=== PATIENT | female | born 1935 | race Caucasian/White ===

== ENCOUNTER → 2016-07-25 | Outpatient (CLI) | payer OTHER, MEDICARE ==
[2016-07-25 13:26] LABS: ALT/SGPT 23 U/L (12-78); AST/SGOT 15 U/L (15-37); BLOOD UREA NITROGEN 17 mg/dl (7-18); BUN/CREATININE RATIO 21.8 (10-20); CALCIUM 9.3 mg/dl (8.5-10.1); CARBON DIOXIDE 33 mmol/L (21-32); CHLORIDE 100 mmol/L (98-107); CHOLESTEROL 212 mg/dl (0-200); CREATININE 0.76 mg/dl (0.60-1.20); GLUCOSE 93 mg/dl (70-99); POTASSIUM 3.2 mmol/L (3.5-5.1); SODIUM 140 mmol/L (136-145); TRIGLYCERIDES 110 mg/dl (0-150); VERY LOW DENSITY LIPOPROT CALC 22 mg/dl
[2016-07-25 13:29] LABS: CHOLESTEROL/HDL RATIO 3.6; HDL CHOLESTEROL 59 mg/dl; LDL CHOLESTEROL CALCULATED 131 mg/dl
== END | disposition home or self-care (01) ==
LOC: C.LABMFLN 08:05
PROVIDERS: ATTEND Family Medicine
DX: E78.00 Pure hypercholesterolemia, unspecified (principal); I10 Essential (primary) hypertension

== ENCOUNTER → 2016-08-16 | Outpatient (CLI) | payer OTHER, MEDICARE | END | disposition home or self-care (01) | LOC: C.LABMFLN 09:39 | PROVIDERS: ATTEND Family Medicine | DX: I10 Essential (primary) hypertension (principal) ==

== ENCOUNTER → 2017-02-14 | Outpatient (CLI) | payer OTHER, MEDICARE ==
[2017-02-14 18:22] LABS: ALT/SGPT 23 U/L (12-78); BLOOD UREA NITROGEN 18 mg/dl (7-18); BUN/CREATININE RATIO 21.8 (10-20); CALCIUM 9.4 mg/dl (8.5-10.1); CARBON DIOXIDE 32 mmol/L (21-32); CHLORIDE 101 mmol/L (98-107); CHOLESTEROL 232 mg/dl (0-200); GLUCOSE 94 mg/dl (70-99); POTASSIUM 3.5 mmol/L (3.5-5.1); SODIUM 140 mmol/L (136-145); TRIGLYCERIDES 118 mg/dl (0-150); VERY LOW DENSITY LIPOPROT CALC 24 mg/dl
[2017-02-14 18:26] LABS: ALB/GLOB RATIO 1.2 (0.9-2); ALKALINE PHOSPHATASE 78 U/L (45-117); AST/SGOT 18 U/L (15-37); CHOLESTEROL/HDL RATIO 3.4; HDL CHOLESTEROL 69 mg/dl; LDL CHOLESTEROL CALCULATED 139 mg/dl
== END | disposition home or self-care (01) ==
LOC: C.LABMFLN 11:00
PROVIDERS: ATTEND Family Medicine
DX: E78.00 Pure hypercholesterolemia, unspecified (principal); I10 Essential (primary) hypertension; M85.80 Other specified disorders of bone density and structure, unspecified site

== ENCOUNTER 2020-07-04 14:06 | Inpatient (IN) ==
--- NOTE | 2020-07-04 14:35 | XRay Report ---
SINGLE VIEW CHEST CLINICAL HISTORY: Sepsis. FINDINGS: An AP, portable, upright chest radiograph is obtained. No prior studies are available for c omparison at the time of dictation. The heart is enlarged noting atherosclerotic calcification of th e thoracic aorta. The pulmonary vasculature is noncongested. There is mild bibasilar scarring/atelect asis. No airspace consolidation or large pleural effusion is identified. No pneumothorax is seen. The skeletal structures are osteopenic. The bony thorax is grossly intact. Arthritic change is seen in t he shoulders and thoracic spine. IMPRESSION: Cardiomegaly with no active disease in the chest. ACT 112: Negative or not required by law. Electronically signed by: Dilip Pop M.D. 07/04/2020 2:34 PM
[2020-07-04] MEDS ORDERED: SODIUM CHLORIDE 0.9% 1000ML 1,000 ML IV ONE (15:25)
[2020-07-04 15:29] LABS: Basophils # (auto) 0.04 K/uL (0-0.2); Basophils % (auto) 0.4 %; Eosinophils # (auto) 0.19 K/uL (0-0.5); Eosinophils % (auto) 2.1 %; Hematocrit (blood only) 40.5 % (37-47); Hemoglobin 13.7 g/dL (12.0-16.0); Immature Granulocytes # (auto) 0.02 K/uL (0.00-0.02); Immature Granulocytes % (auto) 0.2 %; Lymphocytes # (auto) 1.93 K/uL (1.2-3.4); Mean Corpuscular Hemoglobin 30.8 pg (25-34); Mean Corpuscular Hgb Conc 33.8 g/dL (32-36); Mean Platelet Volume 10.1 fL (7.4-10.4); Monocytes # (auto) 0.73 K/uL (0.11-0.59); Neutrophils # (auto) 6.26 K/uL (1.4-6.5); Neutrophils % (auto) 68.3 %; Platelet Count 202 K/uL (130-400); RDW Coefficient of Variation 14.1 % (11.5-14.5); RDW Standard Deviation 45.3 fL (36.4-46.3); Red Blood Count 4.45 M/uL (4.2-5.4); White Blood Count 9.17 K/uL (4.8-10.8)
[2020-07-04 15:31] LABS: Appearance Urine Clear (Clear); Bacteria Urine Automated Negative (Negative); Blood Urine Negative (Negative); Color Urine Dark Yellow; Epithelial Cell Urine Auto >30 /lpf (0-5); Glucose Urine UA Negative (Negative); Ketones Urine Trace (Negative); Leukocyte Esterase Urine 2+ (Negative); Nitrite Urine Negative (Negative); Protein Urine Negative (Negative); RBC Urine Automated 0-4 /hpf (0-4); Specific Gravity Urine 1.019 (1.000-1.030); Urobilinogen Urine Positive (Negative); WBC Urine Automated >30 /hpf (0-5)
[2020-07-04 15:34] LABS: Bilirubin Urine 1+ (Negative)
[2020-07-04 15:39] LABS: INR 1.1 (0.9-1.1); Partial Thromboplastin Ratio 1.1; Partial Thromboplastin Time 28.6 Seconds (21.0-31.0); Prothrombin Time 11.4 Seconds (9.0-12.0)
[2020-07-04 15:47] LABS: Albumin Level 2.8 gm/dl (3.4-5.0); BUN Creatinine Ratio 17.4 (10-20); Calcium 9.3 mg/dl (8.5-10.1); Creatinine Clr Calc Pharmacy 29.1 ml/min; Est GFR (African American) 54.8; Est GFR (Non-African American) 47.3; Magnesium 1.3 mg/dl (1.8-2.4); Potassium 4.3 mmol/L (3.5-5.1)
[2020-07-04 15:52] LABS: Albumin Globulin Ratio 0.8 (0.9-2); Bilirubin,Total 0.7 mg/dl (0.2-1); Globulin 3.4 gm/dl (2.5-4.0); Total Protein 6.2 gm/dl (6.4-8.2); Troponin I 0.019 ng/ml (0-0.045)
--- NOTE | 2020-07-04 16:10 | CT Scan Report ---
CT SCAN OF THE BRAIN WITHOUT IV CONTRAST CLINICAL HISTORY: Change in mental status. COMPARISON STUDY: No priors. TECHNIQUE: Unenhanced axial CT scan of the brain is performed from the vertex to the skull base. A do se lowering technique was utilized adhering to the principles of ALARA. CT DOSE: 537.48 mGy.cm FINDINGS: Brain parenchyma: There are age-related involutional changes noting advanced confluent subcortical a nd periventricular microangiopathic change. There is no hemorrhage, mass effect, or evidence of acute territorial ischemia by CT criteria. Arguello-white matter differentiation is preserved. No extra-axial fluid collection is seen. Mineralization is noted in the basal ganglia. Ventricles, sulci, cisterns: Prominent secondary to involutional change. Intracranial vasculature: There is atherosclerotic calcification of the cavernous carotid arteries. Calvarium: Unremarkable. Sinuses and mastoids: The visualized paranasal sinuses are clear. The mastoid air cells are well pneu matized. Orbits: The bony orbits are grossly intact. There are bilateral ocular lens implants. IMPRESSION: There is no hemorrhage, mass effect, or evidence of acute territorial ischemia by CT cassandra suazo. ACT 112: Negative or not required by law. Electronically signed by: Dilip Pop M.D. 07/04/2020 4:09 PM
[2020-07-04] MEDS: MAGNESIUM SULFATE / D5W 1 GM/100 ML BAG IV SCH ×4 (16:27→23:27)
--- NOTE | 2020-07-04 16:51 | Emergency Department Note ---
History of Present Illness General Chief complaint: Illness Stated complaint: SICK/POSSIBLE UTI/DEHYDRATION Time Seen by Provider: 07/04/20 14:20 Source: family (Son at bedside) History of Present Illness Provider complaint: Altered mental status fatigue Associated symptoms: + weakness; no fever/chills 84-year-old female presents emergency department with her son for altered mental status and weakness. Patient has a history of lung cancer and was recently diagnosed with shingles. The patient has been having difficulty taking care of herself so the son moved her in with him 4 days ago. He states in the last 4 days her condition has worsened where she will not eat or drink and has been increasingly more confused. No falls. No fevers. No nausea or vomiting. The son reports that the patient's urine does have a foul smell to it. The son states they have been in touch with the patient's PCP Dr. Pereyra who instructed them to come to the emergency department. Home Medications Medication Instructions Recorded Confirmed Type calcium carbonate 500 mg (1,250 1 tab PO DAILY tab 02/18/19 07/04/20 History mg)-vitamin D3 200 unit tablet multivitamin 1 tab PO DAILY 02/18/19 07/04/20 History triamcinolone acetonide 0.1 % 1 appln TOP BID PRN #30 gm 12/02/19 07/04/20 Rx topical cream alendronate 70 mg tablet 70 mg PO WK #12 tab 01/21/20 07/04/20 Rx chlorthalidone 50 mg tablet 50 mg PO DAILY #90 tab 02/03/20 07/04/20 Rx metoprolol tartrate 25 mg tablet 25 mg PO BID #180 tab 02/03/20 07/04/20 Rx montelukast 10 mg tablet 10 mg PO DAILY #90 tab 02/03/20 07/04/20 Rx omeprazole 40 mg capsule,delayed 40 mg PO DAILY #90 cap 02/03/20 07/04/20 Rx release potassium chloride 10 mEq 20 meq PO DAILY #180 cap 02/03/20 07/04/20 Rx capsule,extended release simvastatin 20 mg tablet 20 mg PO QPM #90 tab 02/03/20 07/04/20 Rx front wheeled walker with tennis #1 ea 06/21/20 06/25/20 Rx balls in back donepezil 10 mg PO HS 07/04/20 07/04/20 History gabapentin 100 mg capsule 100 mg PO TID #90 cap 07/04/20 07/04/20 Rx nystatin 5 ml PO ACHS 07/04/20 07/04/20 History tramadol 50 - 100 mg PO Q6H PRN 07/04/20 07/04/20 History Allergies Allergy/AdvReac Type Severity Reaction Status Date / Time aspirin AdvReac Verified 07/04/20 15:43 Past Med/Surg History Medical History Abdominal pain Adenocarcinoma, lung Allergic rhinitis Asthma-chronic obstructive pulmonary disease overlap syndrome Benign essential hypertension Chronic GERD Dehydration Fatigue Hypercholesterolemia Hypokalemia Memory loss Mental status alteration Mild cognitive impairment Nausea Neurologic gait dysfunction Osteopenia Shingles Urticaria Vitamin D deficiency Surgical History History of tonsillectomy and adenoidectomy Family History Father Colorectal cancer Mother Heart disease Grandmother Breast cancer Social History Smoking Status: Former smoker Tobacco Type: Cigarettes Age Started Using Tobacco: 15; Age Quit Using Tobacco: 39; Number of Years Since Quit: 44; Second Hand Exposure: No; Hx Alcohol Use: No Hx Substance Use: No Preferred Language: Afghan Visual Impairment: No Limitations Hearing Ability: Normal marital status: Current Living Situation: Spouse current occupational status: retired Feels Safe at Home: Yes Childhood Exposure to Second-Hand Smoke: No caffeine: Yes Dental Care, Regularly: No Physical Activity Frequency: 3-4 Times per Week Physical Activity Frequency Comment: daily housework Seatbelt Use: always Sunscreen Use: No Do you think of yourself as: straight/heterosexual Review of Systems Unobtainable due to cognitive status Physical Exam Vital Signs Vital Signs - 24 hr 07/04/20 14:10 07/04/20 15:13 07/04/20 15:20 Temperature 36.8 C Temperature Source Temporal Artery Scan Pulse Rate 54 L 53 L 54 L Pulse Rate [Left Finger] 54 L Pulse Rate from SpO2 Sensor 52 L 54 L Respiratory Rate 16 18 22 Respiratory Effort / Characteristics Non-Labored Spontaneous Respiratory Depth Normal Respiratory Pattern Regular Blood Pressure 121/76 131/67 Blood Pressure [Left Arm] 131/67 Blood Pressure Mean 91 88 Blood Pressure Mean [Left Arm] 88 Blood Pressure Position Sitting Pulse Oximetry 95 96 96 Oxygen Delivery Method Room Air Room Air Room Air Sepsis Recent Fever Within 48 Hours No Sepsis New/Unexplained Change in Mental Status N/A Sepsis Action Taken by Nursing No Action Required 07/04/20 15:30 07/04/20 15:31 07/04/20 15:40 Temperature Temperature Source Pulse Rate 53 L 51 L 54 L Pulse Rate [Left Finger] Pulse Rate from SpO2 Sensor 54 L 52 L 54 L Respiratory Rate 20 19 18 Respiratory Effort / Characteristics Respiratory Depth Respiratory Pattern Blood Pressure 139/64 Blood Pressure [Left Arm] Blood Pressure Mean 89 Blood Pressure Mean [Left Arm] Blood Pressure Position Pulse Oximetry 97 97 97 Oxygen Delivery Method Room Air Room Air Sepsis Recent Fever Within 48 Hours Sepsis New/Unexplained Change in Mental Status Sepsis Action Taken by Nursing 07/04/20 15:50 07/04/20 16:04 07/04/20 16:06 Temperature Temperature Source Pulse Rate 61 64 61 Pulse Rate [Left Finger] 62 Pulse Rate from SpO2 Sensor 58 L 65 61 Respiratory Rate 15 20 Respiratory Effort / Characteristics Non-Labored Respiratory Depth Normal Respiratory Pattern Blood Pressure 153/69 H Blood Pressure [Left Arm] 153/69 H Blood Pressure Mean 97 Blood Pressure Mean [Left Arm] 97 Blood Pressure Position Pulse Oximetry 96 95 96 Oxygen Delivery Method Room Air Room Air Room Air Sepsis Recent Fever Within 48 Hours Sepsis New/Unexplained Change in Mental Status Sepsis Action Taken by Nursing 07/04/20 16:07 07/04/20 16:10 07/04/20 16:20 Temperature Temperature Source Pulse Rate 59 L 58 L Pulse Rate [Left Finger] Pulse Rate from SpO2 Sensor 59 L 58 L Respiratory Rate 23 23 Respiratory Effort / Characteristics Non-Labored Respiratory Depth Respiratory Pattern Blood Pressure Blood Pressure [Left Arm] Blood Pressure Mean Blood Pressure Mean [Left Arm] Blood Pressure Position Pulse Oximetry 95 95 Oxygen Delivery Method Room Air Room Air Sepsis Recent Fever Within 48 Hours Sepsis New/Unexplained Change in Mental Status Sepsis Action Taken by Nursing 07/04/20 16:30 07/04/20 16:31 07/04/20 16:40 Temperature Temperature Source Pulse Rate 58 L 60 61 Pulse Rate [Left Finger] Pulse Rate from SpO2 Sensor 58 L 59 L 60 Respiratory Rate 20 20 16 Respiratory Effort / Characteristics Respiratory Depth Respiratory Pattern Blood Pressure 154/55 H Blood Pressure [Left Arm] Blood Pressure Mean 88 Blood Pressure Mean [Left Arm] Blood Pressure Position Pulse Oximetry 96 96 96 Oxygen Delivery Method Room Air Room Air Sepsis Recent Fever Within 48 Hours Sepsis New/Unexplained Change in Mental Status Sepsis Action Taken by Nursing 07/04/20 16:50 07/04/20 17:00 07/04/20 17:01 Temperature Temperature Source Pulse Rate 63 59 L 57 L Pulse Rate [Left Finger] Pulse Rate from SpO2 Sensor 63 56 L 57 L Respiratory Rate 17 20 20 Respiratory Effort / Characteristics Respiratory Depth Respiratory Pattern Blood Pressure 138/78 Blood Pressure [Left Arm] Blood Pressure Mean 98 Blood Pressure Mean [Left Arm] Blood Pressure Position Pulse Oximetry 94 95 95 Oxygen Delivery Method Sepsis Recent Fever Within 48 Hours Sepsis New/Unexplained Change in Mental Status Sepsis Action Taken by Nursing 07/04/20 17:10 07/04/20 17:20 Temperature Temperature Source Pulse Rate 58 L 56 L Pulse Rate [Left Finger] Pulse Rate from SpO2 Sensor 57 L 54 L Respiratory Rate 23 20 Respiratory Effort / Characteristics Respiratory Depth Respiratory Pattern Blood Pressure Blood Pressure [Left Arm] Blood Pressure Mean Blood Pressure Mean [Left Arm] Blood Pressure Position Pulse Oximetry 96 99 Oxygen Delivery Method Sepsis Recent Fever Within 48 Hours Sepsis New/Unexplained Change in Mental Status Sepsis Action Taken by Nursing Physical Exam HENT: Exam performed. -Head: Normocephalic and atraumatic. -Right Ear: External ear normal. No mastoid tenderness. -Left Ear: External ear normal. No mastoid tenderness. -Mouth/Throat: The oropharynx is clear and moist. No trismus in the jaw. No dental abscesses or uvula swelling. No oropharyngeal exudate or tonsillar abscesses. EYES: Conjunctivae and EOM are normal. Pupils are equal, round, and reactive to light. Right eye exhibits no discharge. Left eye exhibits no discharge. No scleral icterus. NECK: Normal range of motion. Neck supple. No JVD present. No spinous process tenderness present. No carotid bruit present. No rigidity. No tracheal deviation and normal range of motion present. No Brudzinski's sign and no Kernig's sign noted. CV: Normal rate, regular rhythm, normal heart sounds and intact distal pulses. There is no peripheral edema. Palpable radial pulses bue. PULM/CHEST: Effort normal and breath sounds normal. No respiratory distress. No stridor. She has no wheezes. She has no rales. -Chest Wall: She exhibits no tenderness. ABD: The abdomen is soft. Bowel sounds are normal. She has no distension. No mass is present. There is no tenderness. There is no rebound, no guarding, no Reddy's sign and no tenderness at McBurney's point. Rovsig negative MUSC/SKEL: Normal range of motion. There is no peripheral edema, tenderness or deformity. LYMPH: No cervical adenopathy. NEURO: She is alert and oriented to place. She is not oriented to time or person. She has normal strength. No cranial nerve deficit or sensory deficit. Coordination and gait normal. GCS eye subscore is 4. GCS verbal subscore is 5. GCS motor subscore is 6. Cerebellar tests wnl. SKIN: Vesicular lesions over the left anterior abdomen. PSYCH: She has a normal mood and affect. Behavior is normal. Judgment and though t content normal. Course Course 1420: The patient was evaluated in room C9. A complete history and physical exam was performed Cardiac monitoring: An order was placed for continuous cardiac monitoring. The monitor shows a rate of 50 with sinus rhythm 1620: Vital signs stable. Labs within normal limits with exception of magnesium 1.3. Magnesium replacement was started in the emergency department. Imaging within normal limits. [facility]. Administered Medications Discontinued Medications Sodium Chloride (Nss 1000ml) 1,000 mls @ 999 mls/hr IV .Q1H1M ONE Stop: 07/04/20 16:25 Last Infusion: 07/04/20 16:07 Dose: 0 mls/hr Documented by: [id number] Admin: 07/04/20 15:27 Dose: 999 mls/hr Documented by: [id number] Magnesium Sulfate/Dextrose (Magnesium Sulfate / D5w) 1 gm in 100 mls @ 100 mls/hr IV Q1H DIGNA Stop: 07/04/20 18:20 Last Infusion: 07/04/20 18:40 Dose: 0 mls/hr Documented by: [id number] Admin: 07/04/20 17:27 Dose: 100 mls/hr Documented by: [id number] Infusion: 03/14/21 17:27 Dose: 0 mls/hr Documented by: [id number] Admin: 07/04/20 16:27 Dose: 100 mls/hr Documented by: [id number] Medical Decision Making Laboratory Data Result diagrams: 07/04/20 15:13 07/04/20 15:13 Lab Results 07/04/20 07/04/20 07/04/20 Range/Units 15:13 15:13 15:13 WBC 9.17 (4.8-10.8) K/uL RBC 4.45 (4.2-5.4) M/uL Hgb 13.7 (12.0-16.0) g/dL Hct 40.5 (37-47) % MCV 91.0 (80-100) fL MCH 30.8 (25-34) pg MCHC 33.8 (32-36) g/dL RDW Std Deviation 45.3 (36.4-46.3) fL RDW Coeff of Alden 14.1 (11.5-14.5) % Plt Count 202 (130-400) K/uL MPV 10.1 (7.4-10.4) fL Immature Gran % (Auto) 0.2 % Neut % (Auto) 68.3 % Lymph % (Auto) 21.0 % Gove % (Auto) 8.0 % Eos % (Auto) 2.1 % Baso % (Auto) 0.4 % Neut # (Auto) 6.26 (1.4-6.5) K/uL Lymph # (Auto) 1.93 (1.2-3.4) K/uL Gove # (Auto) 0.73 H (0.11-0.59) K/uL Eos # (Auto) 0.19 (0-0.5) K/uL Baso # (Auto) 0.04 (0-0.2) K/uL Immature Gran # (Auto) 0.02 (0.00-0.02) K/uL PT (9.0-12.0) Seconds INR (0.9-1.1) APTT (21.0-31.0) Seconds PTT Ratio Sodium 139 (136-145) mmol/L Potassium 4.3 (3.5-5.1) mmol/L Chloride 105 (98-107) mmol/L Carbon Dioxide 27 (21-32) mmol/L Anion Gap 7.0 (3-11) BUN 19 H (7-18) mg/dl Creatinine 1.07 (0.6-1.2) mg/dl Est Cr Clr Drug Dosing 29.1 ml/min Est GFR ( Amer) 54.8 Est GFR (Non-Af Amer) 47.3 BUN/Creatinine Ratio 17.4 (10-20) Glucose 85 (70-99) mg/dl Lactate (0.4-2.0) mmol/L Calcium 9.3 (8.5-10.1) mg/dl Magnesium 1.3 L (1.8-2.4) mg/dl Total Bilirubin 0.7 (0.2-1) mg/dl AST 17 (15-37) U/L ALT 23 (12-78) U/L Alkaline Phosphatase 77 (45-117) U/L Troponin I 0.019 (0-0.045) ng/ml Total Protein 6.2 L (6.4-8.2) gm/dl Albumin 2.8 L (3.4-5.0) gm/dl Globulin 3.4 (2.5-4.0) gm/dl Albumin/Globulin Ratio 0.8 L (0.9-2) Procalcitonin < 0.05 (0-0.5) ng/ml Urine Color Urine Appearance (Clear) Urine pH (4.5-7.5) Ur Specific [place] (1.000-1.030) Urine Protein (Negative) Urine Glucose (UA) (Negative) Urine Ketones (Negative) Urine Blood (Negative) Urine Nitrite (Negative) Urine Bilirubin (Negative) Urine Urobilinogen (Negative) Ur Leukocyte Esterase (Negative) Urine WBC (Auto) (0-5) /hpf Urine RBC (Auto) (0-4) /hpf U Hyaline Cast (Auto) (0-5) /lpf U Epithel Cells (Auto) (0-5) /lpf Urine Bacteria (Auto) (Negative) COVID-19 Eval Order SARS-CoV-2, RNA, NAAT (NEGATIVE) 07/04/20 07/04/20 07/04/20 Range/Units 15:13 15:13 15:15 WBC (4.8-10.8) K/uL RBC (4.2-5.4) M/uL Hgb (12.0-16.0) g/dL Hct (37-47) % MCV (80-100) fL MCH (25-34) pg MCHC (32-36) g/dL RDW Std Deviation (36.4-46.3) fL RDW Coeff of Alden (11.5-14.5) % Plt Count (130-400) K/uL MPV (7.4-10.4) fL Immature Gran % (Auto) % Neut % (Auto) % Lymph % (Auto) % Gove % (Auto) % Eos % (Auto) % Baso % (Auto) % Neut # (Auto) (1.4-6.5) K/uL Lymph # (Auto) (1.2-3.4) K/uL Gove # (Auto) (0.11-0.59) K/uL Eos # (Auto) (0-0.5) K/uL Baso # (Auto) (0-0.2) K/uL Immature Gran # (Auto) (0.00-0.02) K/uL PT 11.4 (9.0-12.0) Seconds INR 1.1 (0.9-1.1) APTT 28.6 (21.0-31.0) Seconds PTT Ratio 1.1 Sodium (136-145) mmol/L Potassium (3.5-5.1) mmol/L Chloride (98-107) mmol/L Carbon Dioxide (21-32) mmol/L Anion Gap (3-11) BUN (7-18) mg/dl Creatinine (0.6-1.2) mg/dl Est Cr Clr Drug Dosing ml/min Est GFR ( Amer) Est GFR (Non-Af Amer) BUN/Creatinine Ratio (10-20) Glucose (70-99) mg/dl Lactate 1.1 (0.4-2.0) mmol/L Calcium (8.5-10.1) mg/dl Magnesium (1.8-2.4) mg/dl Total Bilirubin (0.2-1) mg/dl AST (15-37) U/L ALT (12-78) U/L Alkaline Phosphatase (45-117) U/L Troponin I (0-0.045) ng/ml Total Protein (6.4-8.2) gm/dl Albumin (3.4-5.0) gm/dl Globulin (2.5-4.0) gm/dl Albumin/Globulin Ratio (0.9-2) Procalcitonin (0-0.5) ng/ml Urine Color Dark Yellow Urine Appearance Clear (Clear) Urine pH 6.0 (4.5-7.5) Ur Specific [place] 1.019 (1.000-1.030) Urine Protein Negative (Negative) Urine Glucose (UA) Negative (Negative) Urine Ketones Trace H (Negative) Urine Blood Negative (Negative) Urine Nitrite Negative (Negative) Urine Bilirubin 1+ H (Negative) Urine Urobilinogen Positive H (Negative) Ur Leukocyte Esterase 2+ H (Negative) Urine WBC (Auto) >30 H (0-5) /hpf Urine RBC (Auto) 0-4 (0-4) /hpf U Hyaline Cast (Auto) 5-10 H (0-5) /lpf U Epithel Cells (Auto) >30 H (0-5) /lpf Urine Bacteria (Auto) Negative (Negative) COVID-19 Eval Order SARS-CoV-2, RNA, NAAT (NEGATIVE) 07/04/20 07/04/20 Range/Units 15:23 15:23 WBC (4.8-10.8) K/uL RBC (4.2-5.4) M/uL Hgb (12.0-16.0) g/dL Hct (37-47) % MCV (80-100) fL MCH (25-34) pg MCHC (32-36) g/dL RDW Std Deviation (36.4-46.3) fL RDW Coeff of Alden (11.5-14.5) % Plt Count (130-400) K/uL MPV (7.4-10.4) fL Immature Gran % (Auto) % Neut % (Auto) % Lymph % (Auto) % Gove % (Auto) % Eos % (Auto) % Baso % (Auto) % Neut # (Auto) (1.4-6.5) K/uL Lymph # (Auto) (1.2-3.4) K/uL Gove # (Auto) (0.11-0.59) K/uL Eos # (Auto) (0-0.5) K/uL Baso # (Auto) (0-0.2) K/uL Immature Gran # (Auto) (0.00-0.02) K/uL PT (9.0-12.0) Seconds INR (0.9-1.1) APTT (21.0-31.0) Seconds PTT Ratio Sodium (136-145) mmol/L Potassium (3.5-5.1) mmol/L Chloride (98-107) mmol/L Carbon Dioxide (21-32) mmol/L Anion Gap (3-11) BUN (7-18) mg/dl Creatinine (0.6-1.2) mg/dl Est Cr Clr Drug Dosing ml/min Est GFR ( Amer) Est GFR (Non-Af Amer) BUN/Creatinine Ratio (10-20) Glucose (70-99) mg/dl Lactate (0.4-2.0) mmol/L Calcium (8.5-10.1) mg/dl Magnesium (1.8-2.4) mg/dl Total Bilirubin (0.2-1) mg/dl AST (15-37) U/L ALT (12-78) U/L Alkaline Phosphatase (45-117) U/L Troponin I (0-0.045) ng/ml Total Protein (6.4-8.2) gm/dl Albumin (3.4-5.0) gm/dl Globulin (2.5-4.0) gm/dl Albumin/Globulin Ratio (0.9-2) Procalcitonin (0-0.5) ng/ml Urine Color Urine Appearance (Clear) Urine pH (4.5-7.5) Ur Specific [place] (1.000-1.030) Urine Protein (Negative) Urine Glucose (UA) (Negative) Urine Ketones (Negative) Urine Blood (Negative) Urine Nitrite (Negative) Urine Bilirubin (Negative) Urine Urobilinogen (Negative) Ur Leukocyte Esterase (Negative) Urine WBC (Auto) (0-5) /hpf Urine RBC (Auto) (0-4) /hpf U Hyaline Cast (Auto) (0-5) /lpf U Epithel Cells (Auto) (0-5) /lpf Urine Bacteria (Auto) (Negative) COVID[facility]19 [email or web address] SARS-[facility]-2, RNA, NAAT NEGATIVE (NEGATIVE) ECG Data Indication: + altered mental status Rate (beats per minute): 52 Rhythm: + normal sinus ECG Intervals/blocks: + Normal OH and + Normal QT-c ECG ST segments: + Normal ST segments Additional Comments: QRS 68 MDM Narrative 1420: The patient was evaluated in room C9. A complete history and physical exam was performed Cardiac monitoring: An order was placed for continuous cardiac monitoring. The monitor shows a rate of 50 with sinus rhythm 1620: Vital signs stable. Labs within normal limits with exception of magnesium 1.3. Magnesium replacement was started in the emergency department. Imaging within normal limits. [facility] been [facility]. Impression & Plan Hypomagnesemia Discharge Plan Visit Data Chief Complaint: Illness Stated Complaint: SICK/POSSIBLE UTI/DEHYDRATION ED Provider: Jamal Medeiros Discharge Problem: Hypomagnesemia Patient Disposition: Admitted As Inpatient Discharge Instructions Interventions: ED Discharge Assessment Last Done: 07/04/20 19:58
--- NOTE | 2020-07-04 18:19 | History & Physical Report ---
Date of Service July 04, 2020 Assessment & Plan (1) Fatigue: Patient feels more fatigued and sleeping more, and decrease oral intake--- she has been followed closely by her PCP. - labs support decrease intake- will replace mag .13--> 4 gram total - Murmur noted on physical exam, appears to be new. - obtain ECHO while in house as this may be associated with her new fatigue - Hold gabapentin, recently increased- may be effecting her fatigue and weakness and balance reported - Hold tramadol (2) Hypomagnesemia: Decreased oral intake likely cause - no gastric loss - replete with 4 gm mag, recheck in am (3) Shingles: crusted over - place on contact precautions - pain control if needed with Lidoderm patch - Tylenol -discontinuing home gabapentin and tramadol as above as likely cause of her inc reasing lethargy (4) Mild cognitive impairment: Has been following PCP for this and again may be related to polypharmacy and addition of new medications for her shingles - will hold and control pain with alternate agents - hydrate, follow nutritional intake - Patient had MRI in November 2019 with no evidence of metastic disease CT head here negative for acute - could consider re-image on this admission if not improving with holding sedating medications (5) Adenocarcinoma, lung: FNA with adeno and completed radiation therapy. - Hematology is Giesinger - Lungs clear to auscultation and no hypoxia (6) Hypercholesterolemia: continue statin (7) Hypertension: Eppisodes of dehydration and hypokalemia at visits to her PCP recently chlorthalidone has been held - can restart in monitored setting if needed - patient appears euvolemic on exam (8) Murmur: New as above. NOT able to find previous evidence of murumr - ECHO- Bp control (9) COPD (chronic obstructive pulmonary disease): Class B- smoker history- emphysema - On Triligy and she feels like her breathing is doing well - No acute needs (10) DVT prophylaxis: Lovenox SQ Dispo-admit to med/surg for replacement of magnesium, observation for improvement off sedating meds, and PT/OT evals to see if needs rehab placement History of Present Illness Primary Care Provider: Dilip Pereyra MD 84 YOF with past medical history of 30 year smoker, COPD, lung cancer, HLD, HTN, shingles (06/17), dementia, and weakness. The patient was brought in today by her son for progressive weakness, loss of appetite, and decrease oral fluid i ntake. The patient is normally the caregiver for her bed-ridden and independent at home. the patient was diagnosed with shingles along her left thoracic region and under left breast. She was given gabapentin, valcyclovir and tramadol. 05March the patient's gabapentin was increased to 100 mg 2 pills 3x per day and was to follow up with progress. The son reports that she has just been increasingly tired, sleeping more, and increased weakness and ability to transfer at home. He took his mom to live at his house at the beginning of this week to help her and assist her getting around. She was noted to by hypomagnesemic in the EMD, and will need to follow up for OT/PT and evaluation of her status, so will be observed in house. Patient with increasing fatigue, and confusion and memory involvement will need case management to evaluate and assist with home needs and care delivery. Consult placed. Allergies Allergy/AdvReac Type Severity Reaction Status Date / Time aspirin AdvReac Verified 07/04/20 15:43 Home Medications Medication Instructions Recorded Confirmed Type calcium carbonate 500 mg (1,250 1 tab PO DAILY tab 02/18/19 07/04/20 History mg)-vitamin D3 200 unit tablet multivitamin 1 tab PO DAILY 02/18/19 07/04/20 History triamcinolone acetonide 0.1 % 1 appln TOP BID PRN #30 gm 12/02/19 07/04/20 Rx topical cream alendronate 70 mg tablet 70 mg PO WK #12 tab 01/21/20 07/04/20 Rx chlorthalidone 50 mg tablet 50 mg PO DAILY #90 tab 02/03/20 07/04/20 Rx metoprolol tartrate 25 mg tablet 25 mg PO BID #180 tab 02/03/20 07/04/20 Rx montelukast 10 mg tablet 10 mg PO DAILY #90 tab 02/03/20 07/04/20 Rx omeprazole 40 mg capsule,delayed 40 mg PO DAILY #90 cap 02/03/20 07/04/20 Rx release potassium chloride 10 mEq 20 meq PO DAILY #180 cap 02/03/20 07/04/20 Rx capsule,extended release simvastatin 20 mg tablet 20 mg PO QPM #90 tab 02/03/20 07/04/20 Rx front wheeled walker with tennis #1 ea 06/21/20 06/25/20 Rx balls in back donepezil 10 mg PO HS 07/04/20 07/04/20 History gabapentin 100 mg capsule 100 mg PO TID #90 cap 07/04/20 07/04/20 Rx nystatin 5 ml PO ACHS 07/04/20 07/04/20 History tramadol 50 - 100 mg PO Q6H PRN 07/04/20 07/04/20 History Past Med/Surg History Medical History Abdominal pain Adenocarcinoma, lung Allergic rhinitis Asthma-chronic obstructive pulmonary disease overlap syndrome Benign essential hypertension Chronic GERD Dehydration Fatigue Hypercholesterolemia Hypokalemia Memory loss Mental status alteration Mild cognitive impairment Nausea Neurologic gait dysfunction Osteopenia Shingles Urticaria Vitamin D deficiency Surgical History History of tonsillectomy and adenoidectomy Family History Father Colorectal cancer Mother Heart disease Grandmother Breast cancer Social History Smoking Status: Former smoker Tobacco Type: Cigarettes Age Started Using Tobacco: 15; Age Quit Using Tobacco: 39; Number of Years Since Quit: 44; Second Hand Exposure: No; Hx Alcohol Use: No Hx Substance Use: No Preferred Language: Romansh Visual Impairment: No Limitations Hearing Ability: Normal marital status: Current Living Situation: Spouse current occupational status: retired Feels Safe at Home: Yes Childhood Exposure to Second-Hand Smoke: No caffeine: Yes Dental Care, Regularly: No Physical Activity Frequency: 3-4 Times per Week Physical Activity Frequency Comment: daily housework Seatbelt Use: always Sunscreen Use: No Do you think of yourself as: straight/heterosexual Review of Systems Review of Systems: REVIEW OF SYSTEMS: Constitutional: No fever, sweats or chills Eyes: No diplopia, no worsening or blurred vision ENT: normal hearing, no trouble swallowing Respiratory: No cough, sputum, dyspnea at rest or on exertion Cardiovascular: No chest pain, tightness or palpitations Abdomen: No pain, nausea, vomiting, diarrhea or constipation Musculoskeletal: No joint pain, calf pain, swelling Neurologic: (+) weakness, balance problems, (+) numbness/tingling, or balance problems Psychiatric: No anxiety or depression Skin: (+) herpectic rash on thoracic Physical Exam Physical Exam: PHYSICAL EXAM: General: awake, alert, no apparent distress Head: Normocephalic, atraumatic ENT: PERRL, EOMI, no pharyngeal exudate, mucous membranes moist Neuro: AAO x 3, speech clear and appropriate, strength intact bilaterally 5/5, sensation intact and equal all extremities and dermatones, no pronator drift Chest: equal rise and fall of the chest, no accessory muscle use, no heaves or thirlls, Clear to auscultation, on room air, Cardiac: Regular rate and rhythm, (+) murmur, telelmetry reviewed, skin warm dry, cap refill <3 seconds, peripheral pusles +2 no JVD, no murmur, no JVD, no edema GI: NABS x 4 quadrants, soft, nontender to palpation, no rebound, guarding or tenderness : Spontaneously voiding, no pain, no CVA tenderness, Extremities: Normal inspection, no peripheral edema or erythema, calfs nontender to palpation Psych: Normal mood and affect cits Skin: no rash or erythema Results & Data Results & Data ([facility]) Vital Signs (Past 12 Hours) Vital Signs Temp Pulse Pulse Resp BP BP Pulse Ox 07/04/20 17:20 56 L 20 99 07/04/20 17:10 58 L 23 96 07/04/20 17:01 57 L 20 138/78 95 07/04/20 17:00 59 L 20 95 07/04/20 16:50 63 17 94 07/04/20 16:40 61 16 96 07/04/20 16:31 60 20 154/55 H 96 07/04/20 16:30 58 L 20 96 07/04/20 16:20 58 L 23 95 07/04/20 16:10 59 L 23 95 07/04/20 16:06 61 62 20 153/69 H 153/69 H 96 07/04/20 16:04 64 95 07/04/20 15:50 61 15 96 07/04/20 15:40 54 L 18 97 03/14/21 15:31 51 L 19 139/64 97 07/04/20 15:30 53 L 20 97 07/04/20 15:20 54 L 54 L 22 131/67 96 07/04/20 15:13 53 L 18 131/67 96 07/04/20 14:10 36.8 C 54 L 16 121/76 95 Laboratory Results Abnormal lab results 07/04/20 07/04/20 07/04/20 Range/Units 15:13 15:13 15:15 Alfalfa # (Auto) 0.73 H (0.11-0.59) K/uL BUN 19 H (7-18) mg/dl Magnesium 1.3 L (1.8-2.4) mg/dl Total Protein 6.2 L (6.4-8.2) gm/dl Albumin 2.8 L (3.4-5.0) gm/dl Albumin/Globulin Ratio 0.8 L (0.9-2) Urine Ketones Trace H (Negative) Urine Bilirubin 1+ H (Negative) Urine Urobilinogen Positive H (Negative) Ur Leukocyte Esterase 2+ H (Negative) Urine WBC (Auto) >30 H (0-5) /hpf U Hyaline Cast (Auto) 5-10 H (0-5) /lpf U Epithel Cells (Auto) >30 H (0-5) /lpf Diagnostic Findings CT SCAN OF THE BRAIN WITHOUT IV CONTRAST CLINICAL HISTORY: Change in mental status. COMPARISON STUDY: No priors. TECHNIQUE: Unenhanced axial CT scan of the brain is performed from the vertex to the skull base. A dose lowering technique was utilized adhering to the principles of ALARA. CT DOSE: 537.48 mGy.cm FINDINGS: Brain parenchyma: There are age-related involutional changes noting advanced confluent subcortical and periventricular microangiopathic change. There is no hemorrhage, mass effect, or evidence of acute territorial ischemia by CT criteria. Arguello-white matter differentiation is preserved. No extra-axial fluid collection is seen. Mineralization is noted in the basal ganglia. Ventricles, sulci, cisterns: Prominent secondary to involutional change. Intracranial vasculature: There is atherosclerotic calcification of the cavernous carotid arteries. Calvarium: Unremarkable. Sinuses and mastoids: The visualized paranasal sinuses are clear. The mastoid air cells are well pneumatized. Orbits: The bony orbits are grossly intact. There are bilateral ocular lens implants. IMPRESSION: There is no hemorrhage, mass effect, or evidence of acute territorial ischemia by CT criteria. SINGLE VIEW CHEST CLINICAL HISTORY: Sepsis. FINDINGS: An AP, portable, upright chest radiograph is obtained. No prior studies are available for comparison at the time of dictation. The heart is enlarged noting atherosclerotic calcification of the thoracic aorta. The pulmonary vasculature is noncongested. There is mild bibasilar scarring/atelectasis. No airspace consolidation or large pleural effusion is identified. No pneumothorax is seen. The skeletal structures are osteopenic. The bony thorax is grossly intact. Arthritic change is seen in the shoulders and thoracic spine. IMPRESSION: Cardiomegaly with no active disease in the chest. Medications Administered Discontinued Medications Sodium Chloride (Nss 1000ml) 1,000 mls @ 999 mls/hr IV .Q1H1M ONE Stop: 07/04/20 16:25 Last Infusion: 07/04/20 16:07 Dose: 0 mls/hr Documented by: [id number] Admin: 07/04/20 15:27 Dose: 999 mls/hr Documented by: [id number] Magnesium Sulfate/Dextrose (Magnesium Sulfate / D5w) 1 gm in 100 mls @ 100 mls/hr IV Q1H DIGNA Stop: 07/04/20 18:20 Last Infusion: 07/04/20 18:40 Dose: 0 mls/hr Documented by: [id number] Admin: 07/04/20 17:27 Dose: 100 mls/hr Documented by: [id number] Infusion: 07/04/20 17:27 Dose: 0 mls/hr Documented by: [id number] Admin: 07/04/20 16:27 Dose: 100 mls/hr Documented by: [id number] Additional Comments: Sinus bradycardia Moderate voltage criteria for LVH, may be normal variant Nonspecific T wave abnormality Abnormal ECG No previous ECGs available Code Status & VTE Plan Code Status VTE: Lovenox CODE: FUll VTE Prophylaxis Plan VTE Prophylaxis will be ordered: Yes Supervising Physician Co-Signing Physician Notes MANAGER ENGAGEMENT Supervision note: I have personally seen and examined the patient and discussed and verified the cruz points of the history and physical along with the plan with SWAPNIL Castanon with the following exceptions and/or additions: Pt here with worsening generalized weakness and lethargy over the last 1-2 weeks since getting shingles and starting on pain meds for such. Denies pain now at shingles site, denies CP or SOB, no cough, no N/V/D, no abd pain. Not lightheaded. Very pleasant History and ROS reviewed Vitals reviewed NAD, AAOx2 RRR no mgr CTAB no wcr Abd +BS soft NT ND Ext no edema or calf tenderness Skin-left anterior chest wall under left breast with scabbed over macular rash Neuro-moving all extremities, can sit right up in bed from lying with very minimal effort to pull herself upright Labs and Rads reviewed 84 yo female here with generalized weakness and poor po intake, hypomagnesemia possibly secondary to ASE of gabapentin and tramadol prescribed for shingles stop offending meds, replace mag, PT/OT consults, observe for improvement PG Care Time/CCT Total # of Minutes Spent Total Time Spent with Patient: Total time spent is greater than 50% in coordination of care (as documented) at patient's floor/unit and/or counseling patient: Coding Level of Care Code 08507 Initial Inpt Care Lvl 3 Diagnoses Fatigue R53.83 Hypomagnesemia E83.42 Shingles B02.9 Mild cognitive impairment G31.84 Adenocarcinoma, lung C34.90 Hypercholesterolemia E78.00 Hypertension I10 Murmur R01.1 COPD (chronic obstructive pulmonary disease) J44.9 DVT prophylaxis Z29.9
[2020-07-04] MEDS ORDERED: POLYETHYLENE (MIRALAX) 17 GM PACK PO PRN (20:17)
[2020-07-04] MEDS ORDERED: ACETAMINOPHEN 325 MG TAB PO PRN (20:17)
[2020-07-04] MEDS: ENOXAPARIN INJ 40 MG/0.4 ML SYR SQ SCH (22:29)
[2020-07-04] MEDS: METOPROLOL TARTRATE 25 MG TAB PO SCH (22:29)
[2020-07-04] MEDS: SIMVASTATIN 20 MG TAB PO SCH (22:30)
[2020-07-04] MEDS: MONTELUKAST SODIUM 10 MG TABLET PO SCH (22:30)
[2020-07-05 07:08] LABS: Basophils # (auto) 0.03 K/uL (0-0.2); Basophils % (auto) 0.4 %; Eosinophils # (auto) 0.21 K/uL (0-0.5); Eosinophils % (auto) 2.5 %; Hematocrit (blood only) 37.7 % (37-47); Hemoglobin 13.1 g/dL (12.0-16.0); Immature Granulocytes # (auto) 0.01 K/uL (0.00-0.02); Immature Granulocytes % (auto) 0.1 %; Lymphocytes # (auto) 1.33 K/uL (1.2-3.4); Lymphocytes % (auto) 15.9 %; Mean Corpuscular Hgb Conc 34.7 g/dL (32-36); Mean Corpuscular Volume 89.3 fL (80-100); Mean Platelet Volume 10.1 fL (7.4-10.4); Monocytes # (auto) 0.53 K/uL (0.11-0.59); Monocytes % (auto) 6.3 %; Neutrophils # (auto) 6.26 K/uL (1.4-6.5); Neutrophils % (auto) 74.8 %; Platelet Count 189 K/uL (130-400); RDW Coefficient of Variation 14.1 % (11.5-14.5); RDW Standard Deviation 44.1 fL (36.4-46.3); Red Blood Count 4.22 M/uL (4.2-5.4); White Blood Count 8.37 K/uL (4.8-10.8)
[2020-07-05 07:33] LABS: BUN Creatinine Ratio 15.6 (10-20); Calcium 8.3 mg/dl (8.5-10.1); Creatinine Clr Calc Pharmacy 44.5 ml/min; Est GFR (African American) 77.9; Est GFR (Non-African American) 67.2; Magnesium 2.5 mg/dl (1.8-2.4); Potassium 3.8 mmol/L (3.5-5.1)
[2020-07-05] MEDS: METOPROLOL TARTRATE 25 MG TAB PO SCH ×2 (09:11→20:03)
[2020-07-05] MEDS: LIDOCAINE 5% 1 PATCH TD SCH (09:12)
[2020-07-05] MEDS: MULTIVITAMIN TAB PO SCH (09:12)
[2020-07-05] MEDS: POTASSIUM CHLORIDE CRTAB 20 MEQ TABCR PO SCH (09:12)
[2020-07-05] MEDS: PANTOprazole 40 MG TAB PO SCH (09:12)
[2020-07-05] MEDS: FLUTICASONE FUROATE 200MCG 14 PUFFS/INHALER INH SCH (09:24)
[2020-07-05] MEDS: UMECLIDINIUM/VILANTEROL 62.5/25MCG 7 PUFFS/INHALER INH SCH (09:24)
[2020-07-05] MEDS: THIAMINE HCL 100 MG TAB PO SCH (10:24)
--- NOTE | 2020-07-05 13:14 | Hospitalist Progress Note ---
Date of Service July 05, 2020 Assessment & Plan (1) Fatigue: Patient feels more fatigued and sleeping more. Decreased oral intake--- she has been followed closely by her PCP. - Murmur noted on physical exam, appears to be new. - TTE pending - Hold gabapentin & tramadol (2) Mild cognitive impairment: Has been following PCP for this and again may be related to polypharmacy and addition of new medications for her shingles. - Patient had MRI in November 2019 with no evidence of metastatic disease, but did show small vessel disease. - CT head on 07/04 was negative for acute issue. - Admitting team empirically started thiamine. (3) Hypomagnesemia: Decreased oral intake likely cause. - Resolved on 07/05 with repletion. (4) Shingles: On right chest wall. Crusted over. - Placed on contact precautions - Pain control if needed with Lidoderm patch & Tylenol. - Discontinued home gabapentin and tramadol (5) Hypertension: Episodes of dehydration and hypokalemia at visits to her PCP recently chlorthalidone has been held. - BP today is 145/60. - Continue home metoprolol - Monitor (6) Adenocarcinoma, lung: FNA with adeno and completed radiation therapy. Hematology is Giesinger. - Lungs clear to auscultation and no hypoxia (7) Hypercholesterolemia: - Continue statin (8) Murmur: New as above. NOT able to find previous evidence of murmur. - TTE as above (9) COPD (chronic obstructive pulmonary disease): Class B- smoker history- emphysema. She feels like her breathing is doing well. - On Trelegy inhaler and Singulair - No acute needs (10) DVT prophylaxis: Lovenox 40 mg SQ daily Admission and Anticipated Discharge Date Admission Date: July 04, 2020 Subjective Reports feeling much better today, but is very confused. Really only AAOx1 this morning. Reports her tiredness and weakness are improved. Reports no fevers/chills, chest pain, shortness of breath, abdominal pain, nausea, or vomiting. Physical Exam Constitutional: WD/WN, vitals as above Eyes: EOM intact bilaterally; no conjunctival abnormality ENMT: external ear and nose normal, oropharynx normal Neck: trachea midline, no thyromegaly normal visual inspection Respiratory: normal respiratory effort, lungs clear to auscultation no respiratory distress Cardiovascular: RRR, no murmur, no edema Gastrointestinal (Abdomen): Inspection/Auscultation: abdomen normal to inspection; abdomen not distended Musculoskeletal: no cyanosis or clubbing, extremities motor strength 5/5 Skin: no rashes, warm and dry Neurologic: moves all extremities and awake Psychiatric: Orientation: alert and cooperative; + not oriented to person, + not oriented to place and + not oriented to time Affect: euthymic affect Results & Data Results & Data ([facility]) Vital Signs (Past 12 Hours) Vital Signs Temp Pulse Resp BP Pulse Ox 07/05/20 07:44 36.7 C 59 L 18 145/62 H 94 07/05/20 01:40 36.7 C 62 16 111/58 L 97 PG Care Time/CCT Total # of Minutes Spent Total Time Spent with Patient: Total time spent is greater than 50% in coordination of care (as documented) at patient's floor/unit and/or counseling patient: Coding Level of Care Code 78930 Subseq Hosp Care Lvl 2 Diagnoses Fatigue R53.83 Mild cognitive impairment G31.84 Hypomagnesemia E83.42 Shingles B02.9 Hypertension I10 Adenocarcinoma, lung C34.90 Hypercholesterolemia E78.00 Murmur R01.1 COPD (chronic obstructive pulmonary disease) J44.9 DVT prophylaxis Z29.9
--- NOTE | 2020-07-05 15:00 | XCELERA ---
[id number]
[2020-07-05] MEDS: MONTELUKAST SODIUM 10 MG TABLET PO SCH (20:03)
[2020-07-05] MEDS: ENOXAPARIN INJ 40 MG/0.4 ML SYR SQ SCH (20:05)
[2020-07-05] MEDS: SIMVASTATIN 20 MG TAB PO SCH (20:28)
--- NOTE | 2020-07-05 21:50 | Electrocardiogram Report ---
Test Reason : Blood Pressure : / mmHG Vent. Rate : 052 BPM Atrial Rate : 052 BPM P-R Int : 134 ms QRS Dur : 068 ms QT Int : 428 ms P-R-T Axes : 041 -24 -01 degrees QTc Int : 398 ms Sinus bradycardia Moderate voltage criteria for LVH, may be normal variant Nonspecific T wave abnormality Abnormal ECG No previous ECGs available Confirmed by Rylan Lennon ([id number]) on 07/05/2020 9:50:01 PM Referred By: REFERRED SELF Confirmed By:Rylan Lennon
[2020-07-06] MEDS ORDERED: ONDANSETRON 4 MG OD TAB PO PRN (04:10)
[2020-07-06] MEDS: FLUTICASONE FUROATE 200MCG 14 PUFFS/INHALER INH SCH (08:45)
[2020-07-06] MEDS: UMECLIDINIUM/VILANTEROL 62.5/25MCG 7 PUFFS/INHALER INH SCH (08:45)
[2020-07-06] MEDS: PANTOprazole 40 MG TAB PO SCH (08:47)
[2020-07-06] MEDS: METOPROLOL TARTRATE 25 MG TAB PO SCH ×2 (08:47→20:33)
[2020-07-06] MEDS: POTASSIUM CHLORIDE CRTAB 20 MEQ TABCR PO SCH (08:48)
[2020-07-06] MEDS: THIAMINE HCL 100 MG TAB PO SCH (08:48)
[2020-07-06] MEDS: MULTIVITAMIN TAB PO SCH (08:48)
[2020-07-06] MEDS: LIDOCAINE 5% 1 PATCH TD SCH (08:49)
--- NOTE | 2020-07-06 13:26 | Hospitalist Progress Note ---
Date of Service July 06, 2020 Assessment & Plan (1) Mild cognitive impairment: Has been following PCP for this and again may be related to polypharmacy and addition of new medications for her shingles. - Patient had MRI in November 2019 with no evidence of metastatic disease, but did show small vessel disease. - CT head on 07/04 was negative for acute issue. - TSH on 06/18/2020 was 3.5. - Admitting team empirically started thiamine. - Will get vitamin D, B1 - Possible paraneoplastic vs. metastatic disease? Will get MRI brain w/o & w/ contrast. (2) Fatigue: Patient feels more fatigued and sleeping more. Decreased oral intake--- she has been followed closely by her PCP. - Murmur noted on physical exam, appears to be new. - TTE on 07/05 showed EF > 70%, no major valvular issues. - Hold gabapentin & tramadol (3) Shingles: On right chest wall and back. Dermatomes ~T3 - S3. No active vesicles, and only 2 scabs that look more like itching/excoriation rather than vesicles. - Does not actually need contact precautions at this time. - Pain control if needed with Lidoderm patch & Tylenol. Benadryl cream for itching. - Discontinued home gabapentin and tramadol (4) Hypertension: Episodes of dehydration and hypokalemia at visits to her PCP recently chlorthalidone has been held. - BP today is 130/75. - Continue home metoprolol - Monitor (5) Adenocarcinoma, lung: FNA with adeno and completed radiation therapy. Hematology is Giesinger. - Lungs clear to auscultation and no hypoxia - Will get CT chest to assess status (6) Hypercholesterolemia: - Continue statin (7) COPD (chronic obstructive pulmonary disease): Class B- smoker history- emphysema. She feels like her breathing is doing well. - On Trelegy inhaler and Singulair - No acute needs (8) DVT prophylaxis: Lovenox 40 mg SQ daily Admission and Anticipated Discharge Date Admission Date: July 04, 2020 Subjective Still confused today, but honestly, no major concerns. She is pleasant and chatty. Reports no fevers/chills, chest pain, shortness of breath, abdominal pain, nausea, or vomiting. Physical Exam Constitutional: WD/WN, vitals as above Eyes: EOM intact bilaterally; no conjunctival abnormality ENMT: external ear and nose normal, oropharynx normal Neck: trachea midline, no thyromegaly normal visual inspection Respiratory: normal respiratory effort, lungs clear to auscultation no respiratory distress Cardiovascular: RRR, no murmur, no edema Gastrointestinal (Abdomen): Inspection/Auscultation: abdomen normal to inspection; abdomen not distended Musculoskeletal: no cyanosis or clubbing, extremities motor strength 5/5 Skin: no rashes, warm and dry Neurologic: moves all extremities and awake Psychiatric: Orientation: alert and cooperative; + not oriented to person, + not oriented to place and + not oriented to time Affect: euthymic affect Results & Data Results & Data ([facility]) Vital Signs (Past 12 Hours) Vital Signs Temp Pulse Resp BP Pulse Ox 07/06/20 07:45 36.8 C 67 18 129/73 96 PG Care Time/CCT Total # of Minutes Spent Total Time Spent with Patient: Total time spent is greater than 50% in coordination of care (as documented) at patient's floor/unit and/or counseling patient: Coding Level of Care Code 55245 Subseq Hosp Care Lvl 3 Diagnoses Mild cognitive impairment G31.84 Fatigue R53.83 Shingles B02.9 Hypertension I10 Adenocarcinoma, lung C34.90 Hypercholesterolemia E78.00 COPD (chronic obstructive pulmonary disease) J44.9 DVT prophylaxis Z29.9
--- NOTE | 2020-07-06 14:51 | CT Scan Report ---
CT SCAN OF THE CHEST WITHOUT IV CONTRAST CLINICAL HISTORY: Adenocarcinoma unspecified. COMPARISON STUDY: Chest x-ray dated 07/04/2020. Chest CT dated 10/02/2019. TECHNIQUE: CT scan of the thorax was performed from the thoracic inlet to the upper abdomen. Images are reviewed in the axial, sagittal, and coronal planes. IV contrast was not administered for this ex amination as per the referring clinician. A dose lowering technique was utilized adhering to the cecile Wiley. The examination is compromised by motion artifact. CT DOSE: 176.37 mGy.cm FINDINGS: Thyroid: Imaged portions of the thyroid gland are normal in size and attenuation. Thoracic aorta: There is advanced atherosclerotic calcification of the thoracic aorta, which is ximena l in caliber and demonstrates bovine variant arch anatomy. Heart: The heart is mildly enlarged and without pericardial effusion. The coronary arteries are dense ly calcified. Lungs and pleural spaces: Evaluation of the lung parenchyma is severely degraded by motion artifact. Emphysematous change is noted. There is postoperative change from left lower lobe wedge resection. Th ere is trace left pleural effusion with associated basilar atelectasis. Mild patchy airspace opacitie s are seen in the left lower lobe on image #86. This is not well evaluated. The trachea and central a irways appear clear. A 4 mm pleural-based nodule in the right middle lobe on image #111 is unchanged. Mediastinum: There is no mediastinal lymphadenopathy. Mary: Not well assessed without IV contrast. Axillae: There is no axillary lymphadenopathy. Upper abdomen: There is a large hiatal hernia. Calcified granulomas are noted in the liver. Skeletal structures: The skeletal structures are osteopenic. Degenerative change and hyperkyphosis ar e noted in the thoracic spine. Large posterior disc osteophyte complex in the midthoracic spine likel y contribute to spinal stenosis. Advanced arthritic change is seen in the shoulders. No lytic or brandon tic bony lesions are seen. IMPRESSION: 1. Severely motion compromised examination. This significantly degrades assessment for pulmonary lesi ons. 2. Cardiomegaly, advanced emphysema, and postoperative change from left lower lobe wedge resection. 3. There are mild patchy opacities in the left lower lobe. This is indeterminant and may represent a mild infectious/inflammatory pneumonitis. Clinical correlation will be required. Follow-up CT in 2-3 months time is recommended for reassessment when the patient is better able to breath-hold. 4. Trace left pleural effusion. 5. Large hiatal hernia. 6. Additional findings as above. ACT 112: Negative or not required by law. Electronically signed by: Dilip Pop M.D. 07/06/2020 2:50 PM
[2020-07-06] MEDS ORDERED: GADOBUTROL 65ML VIAL IV ONE (15:37)
--- NOTE | 2020-07-06 15:59 | Magnetic Resonance Report ---
MRI OF THE BRAIN COMBO CLINICAL HISTORY: Change in mental status. Metastatic survey. Adenocarcinoma. COMPARISON STUDY: CT of the brain dated 07/04/2020 TECHNIQUE: MRI of the brain was performed utilizing various T1 and T2-weighted sequences in the axial , sagittal, and coronal planes. Contrast-enhanced sequences were acquired following the administratio n of 6.4 cc of Gadavist. FINDINGS: Brain parenchyma: There is age-related involutional change noting advanced confluent subcortical and periventricular microangiopathic disease. There is no hemorrhage or mass effect. There is no restrict ed diffusion to suggest acute ischemia. No enhancing mass lesion is identified on the postcontrast im ages. A chronic lacunar infarct is noted in the right caudate head. Arguello-white matter differentiation is preserved. No extra-axial fluid collection is seen. The cerebellar tonsils are normal in configur ation. Mineralization is seen in the basal ganglia. Ventricles, sulci, and cisterns: Prominent secondary to involutional change. Pituitary and sella: Unremarkable. Intracranial vasculature: Normal flow voids are maintained at the skull base. Orbits: The bony orbits are grossly intact. Orbital contents are normal in appearance noting bilatera l ocular lens implants. Sinuses and mastoids: Clear. Calvarium: Unremarkable. Cervical cord: Partially visualized cervical spinal cord is normal in morphology and signal intensity . IMPRESSION: Senescent changes as above with no acute intracranial abnormality. ACT 112: Negative or not required by law. Electronically signed by: Dilip Pop M.D. 07/06/2020 3:58 PM
[2020-07-06] MEDS: MONTELUKAST SODIUM 10 MG TABLET PO SCH (20:33)
[2020-07-06] MEDS: SIMVASTATIN 20 MG TAB PO SCH (20:33)
[2020-07-06] MEDS: ENOXAPARIN INJ 40 MG/0.4 ML SYR SQ SCH (20:34)
[2020-07-07 08:02] LABS: Hematocrit (blood only) 35.2 % (37-47); Hemoglobin 12.1 g/dL (12.0-16.0); Mean Corpuscular Hemoglobin 30.8 pg (25-34); Mean Corpuscular Hgb Conc 34.4 g/dL (32-36); Mean Corpuscular Volume 89.6 fL (80-100); Platelet Count 179 K/uL (130-400); RDW Coefficient of Variation 14.2 % (11.5-14.5); RDW Standard Deviation 45.1 fL (36.4-46.3); Red Blood Count 3.93 M/uL (4.2-5.4); White Blood Count 6.05 K/uL (4.8-10.8)
[2020-07-07] MEDS: UMECLIDINIUM/VILANTEROL 62.5/25MCG 7 PUFFS/INHALER INH SCH (08:05)
[2020-07-07] MEDS: MULTIVITAMIN TAB PO SCH (08:05)
[2020-07-07] MEDS: THIAMINE HCL 100 MG TAB PO SCH (08:05)
[2020-07-07] MEDS: FLUTICASONE FUROATE 200MCG 14 PUFFS/INHALER INH SCH (08:05)
[2020-07-07] MEDS: PANTOprazole 40 MG TAB PO SCH (08:05)
[2020-07-07] MEDS: METOPROLOL TARTRATE 25 MG TAB PO SCH (08:06)
[2020-07-07] MEDS: POTASSIUM CHLORIDE CRTAB 20 MEQ TABCR PO SCH (08:07)
[2020-07-07] MEDS: LIDOCAINE 5% 1 PATCH TD SCH (08:07)
[2020-07-07 08:38] LABS: BUN Creatinine Ratio 9.4 (10-20); Calcium 8.7 mg/dl (8.5-10.1); Creatinine Clr Calc Pharmacy 41.4 ml/min; Est GFR (African American) 71.4; Est GFR (Non-African American) 61.6; Magnesium 1.8 mg/dl (1.8-2.4); Phosphorus 2.6 mg/dl (2.5-4.9); Potassium 3.7 mmol/L (3.5-5.1)
[2020-07-07] MEDS ORDERED: THIAMINE HCL 500 MG in SODIUM CHLORIDE 0.9% 50 ML IV SCH (09:00)
--- NOTE | 2020-07-07 17:35 | Discharge Summary ---
Date of Service July 07, 2020 Admission HPI Per Admitting Provider 84 YOF with past medical history of 30 year smoker, COPD, lung cancer, HLD, HTN, shingles (06/17), dementia, and weakness. The patient was brought in today by her son for progressive weakness, loss of appetite, and decrease oral fluid intake. The patient is normally the caregiver for her bed-ridden and independent at home. the patient was diagnosed with shingles along her left thoracic region and under left breast. She was given gabapentin, valcyclovir and tramadol. 05March the patient's gabapentin was increased to 100 mg 2 pills 3x per day and was to follow up with progress. The son reports that she has just been increasingly tired, sleeping more, and increased weakness and ability to transfer at home. He took his mom to live at his house at the beginning of this week to help her and assist her getting around. She was noted to by hypomagnesemic in the EMD, and will need to follow up for OT/PT and evaluation of her status, so will be observed in house. Patient with increasing fatigue, and confusion and memory involvement will need case management to evaluate and assist with home needs and care delivery. Consult placed. Principal Diagnosis Possible gabapentin reaction Delirium Moderate cognitive decline -> Likely Alzheimer's dementia Discharge Exam Constitutional WD/WN, vitals as above Eyes EOM intact bilaterally; no conjunctival abnormality ENMT external ear and nose normal, oropharynx normal Neck trachea midline, no thyromegaly normal visual inspection Respiratory normal respiratory effort, lungs clear to auscultation no respiratory distress Cardiovascular RRR, no murmur, no edema Gastrointestinal (Abdomen) Inspection/Auscultation: abdomen normal to inspection; abdomen not distended Musculoskeletal no cyanosis or clubbing, extremities motor strength 5/5 Skin no rashes, warm and dry Neurologic moves all extremities and awake Psychiatric Orientation: alert and cooperative; + not oriented to person, + not oriented to place and + not oriented to time Affect: euthymic affect Discharge Data Allergies Allergy/AdvReac Type Severity Reaction Status Date / Time aspirin AdvReac Verified 07/04/20 15:43 Consultations 07/04/20 16:21 ED Decision to Admit Stat 07/04/20 20:17 Consult Case Management - Discharge Planning Routine 07/04/20 21:33 Consult Case Management - Discharge Planning Routine Ordered Studies 07/04/20 14:22 CT head/brain wo con Stat 07/06/20 13:27 MR brain wo/w con Routine 07/06/20 13:28 CT chest diagnostic wo con Routine Hospital Course (1) Mild cognitive impairment: Has been following PCP for this and again may be related to polypharmacy and addition of new medications for her shingles. - Patient had MRI in November 2019 with no evidence of metastatic disease, but did show small vessel disease. - CT head on 07/04 was negative for acute issue. - TSH on 06/18/2020 was 3.5. - Admitting team empirically started thiamine. I gave 2 doses of empiric thiamine 500 mg IV over 2 days. While it may have just been coincidence, this appeared to help. Discharged with further thiamine repletion. - Vitamin D was 35 (low-normal). - MRI brain w/o & w/ contrast on 07/06 showed small vessel disease, but no acute issues. (2) Fatigue: Patient feels more fatigued and sleeping more. Decreased oral intake--- she has been followed closely by her PCP. - Murmur noted on physical exam, appears to be new. - TTE on 07/05 showed EF > 70%, no major valvular issues. - Hold gabapentin & tramadol (3) Shingles: On right chest wall and back. Dermatomes ~T3 - S3. No active vesicles, and only 2 scabs that look more like itching/excoriation rather than vesicles. - Does not actually need contact precautions at this time. - Pain control if needed with Lidoderm patch & Tylenol. Benadryl cream for itching. - Discontinued home gabapentin and tramadol (4) Hypertension: Episodes of dehydration and hypokalemia at visits to her PCP recently chlorthalidone has been held. - BP today is 130/75. - Continue home metoprolol - Monitor (5) Adenocarcinoma, lung: FNA with adeno and completed radiation therapy. Hematology is Giesinger. - Lungs clear to auscultation and no hypoxia - CT chest on 07/06 showed no consolidation or any recurrence of cancer. (6) Hypercholesterolemia: - Continue statin (7) COPD (chronic obstructive pulmonary disease): Class B- smoker history- emphysema. She feels like her breathing is doing well. - On Trelegy inhaler and Singulair - No acute needs (8) DVT prophylaxis: Lovenox 40 mg SQ daily Total Time Total Time Spent Total Time Spent (In Minutes): 35 Discharge Plan Discharge Items Patient Disposition: Home - Self-Care Reason For Visit: WEAKNESS Discharge Diagnosis: Weakness and confusion Activity: Resume your previous activity Non-emergency contact: Primary Care Provider Call non-emergency contact if: your symptoms worsen Follow-up/Referrals: Dilip Pereyra MD [Primary Care Provider] - Diet: Heart Healthy Addtl Attending Provider Instructions: Please stop the gabapentin. I would also avoid the tramadol, unless it is a half tablet just at bedtime, but even this I would encourage you to avoid. Tylenol is a safer option with no confusion as a side effect. For any itching or discomfort on the side where the shingles is healing, please use the Benadryl cream. Please take the B1 vitamin (thiamine) or an [id number] B complex vitamin once a day. Please follow up with Dr. Pereyra in 1-2 weeks. Pending Studies at Discharge: Yes Stand-Alone Forms: My [email or web address] [email or web address], Smoking Cessation Medications and DC Order Prescriptions: New Anti-Itch(diphenhyd) with Zinc 2-0.1 % Cream 1 applic EXT TID PRN (Reason: itching) Qty: 15 RF: 0 thiamine HCl (vitamin B1) [Vitamin B-1] 100 mg Tablet 100 mg PO QAM Qty: 30 RF: 0 Continued alendronate 70 mg tablet 70 mg PO WK Qty: 12 RF: 3 (DME) front wheeled walker with tennis balls in back See Rx Instructions .Route .MEDSUPPLY Qty: 1 RF: 0 triamcinolone acetonide 0.1 % cream 1 appln TOP BID PRN (Reason: itching) Qty: 30 RF: 5 hqhthvjswgz-ptbsjzheq-chironpt [Trelegy Ellipta] 100-62.5-25 mcg blister with device See Rx Instructions .ROUTE .COMPLEX RF: 0 calcium carbonate-vitamin D3 500 mg(1,250mg) -200 unit tablet 1 tab PO DAILY RF: 0 multivitamin [Daily Multi-Vitamin] tablet 1 tab PO DAILY RF: 0 omeprazole 40 mg capsule,delayed release(DR/EC) 40 mg PO DAILY Qty: 90 RF: 3 metoprolol tartrate 25 mg tablet 25 mg PO BID Qty: 180 RF: 3 montelukast 10 mg tablet 10 mg PO DAILY Qty: 90 RF: 3 simvastatin 20 mg tablet 20 mg PO QPM Qty: 90 RF: 3 nystatin 100,000 unit/mL suspension 5 ml PO ACHS RF: 0 donepezil 10 mg tablet 10 mg PO HS RF: 0 Discontinued gabapentin 100 mg capsule 100 mg PO TID Qty: 90 RF: 2 potassium chloride 10 mEq capsule, extended release 20 meq PO DAILY Qty: 180 RF: 3 chlorthalidone 50 mg tablet 50 mg PO DAILY Qty: 90 RF: 3 Hold Instructions: Home Medication placed on hold at Doctor's office tramadol 50 mg tablet 50 - 100 mg PO Q6H PRN (Reason: pain) RF: 0 Discharge Orders: Discharge Order (Routine); Ordered 07/07/20 Ordered By: Anselmo Reyes/Other Patient Handouts: Understanding a Heart Murmur Admission Data Admit Date/Time: 07/06/20 13:29 Attending Provider: Anselmo Ferrera Admit Provider: Nataly Stephenson Primary Care Provider: Dilip Pereyra Other Providers: Anselmo Ferrera Other Interventions: Discharge Summary Assessment (RN) Last Done: 07/07/20 15:31 Coding Level of Care Code D/C Day Management >30 mins Diagnoses Mild cognitive impairment G31.84 Fatigue R53.83 Shingles B02.9 Hypertension I10 Adenocarcinoma, lung C34.90 Hypercholesterolemia E78.00 COPD (chronic obstructive pulmonary disease) J44.9 DVT prophylaxis Z29.9
[2020-07-11] MEDS ORDERED: ALENDRONATE SODIUM 70 MG TAB PO SCH (06:00)
== END 2020-07-07 16:44 | disposition home or self-care (01) | DRG 57 ==
LOC: ED 14:06 → 3W 14:06 → SUATTDRO 17:49 → 3W 19:58